=== PATIENT | female | born 1955 | race Hispanic/Latino ===

== ENCOUNTER 2019-05-09 13:15 | Emergency (ER) | payer MEDICARE ==
[2019-05-09] MEDS ORDERED: PROVENTIL IH ONE (13:42)
[2019-05-09] MEDS ORDERED: ATROVENT IH ONE (13:42)
[2019-05-09] MEDS ORDERED: SOLU-Medrol IV ONE (13:42)
[2019-05-09] MEDS ORDERED: MAGNESIUM SULFATE 2GM/50ML 2 GM/50 ML BAG IV ONE (13:42)
[2019-05-09] MEDS ORDERED: ZITHROMAX PO ONE (13:43)
[2019-05-09] MEDS ORDERED: TESSALON PERLES PO ONE (13:43)
[2019-05-09 14:09] LABS: Basophils # (Auto) 0.1 K/mm3 (0.0-0.1); Basophils % (Auto) 1.3 % (0.0-1.8); Eosinophils # (Auto) 0.1 K/mm3 (0.0-0.4); Eosinophils % (Auto) 1.4 % (0.0-4.3); Hematocrit 39.7 % (30.3-42.9); Hemoglobin 13.6 gm/dl (10.1-14.3); Lymphocytes % (Auto) 31.4 % (13.4-35.0); Mean Corpuscular HGB Conc 34 % (30-34); Mean Corpuscular Volume 94 fl (79-97); Monocytes # (Auto) 0.5 K/mm3 (0.0-0.8); Monocytes % (Auto) 8.5 % (0.0-7.3); Platelet Count 174 K/mm3 (140-440); Red Blood Count 4.22 M/mm3 (3.65-5.03); Red Cell Distribution Width 13.7 % (13.2-15.2)
[2019-05-09 14:29] LABS: BUN/Creatinine Ratio 53; Blood Urea Nitrogen 16 mg/dL (7-17); Calcium 9.1 mg/dL (8.4-10.2); Hemolysis Index 10
--- NOTE | 2019-05-09 14:47 | XRay Report ---
CHEST 2 VIEWS INDICATION / CLINICAL INFORMATION: wheeze, shortness of breath, cough, emphysema. COMPARISON: None available. FINDINGS: SUPPORT DEVICES: None. HEART / MEDIASTINUM: No significant abnormality. LUNGS / PLEURA: Hyperinflation with flattening of the diaphragm, increased AP dimension of the thorax , and increased rib spacing. Symmetrically increased lucency of the upper lung zones relative to the bases with sparse interstitial and vascular markings. No pneumothorax. ADDITIONAL FINDINGS: No significant additional findings. IMPRESSION: 1. Emphysematous changes. No acute abnormality. Signer Name: Eugenio Peng MD Signed: 05/09/2019 2:42 PM Workstation Name: [id number]
[2019-05-09] MEDS ORDERED: K-DUR PO ONE (14:54)
--- NOTE | 2019-05-09 14:59 | Emergency Department Report ---
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 Cough is productive of yellow-green sputum. No fever reported. Increased wheezing and shortness of breath reported. She ran out of her medications one week ago. Also has not had access to her when necessary oxygen 1 week because it is at a house she does not currently have access to. Patient does have an inhaler and access to a nebulizer machine. She denies fever, previous intubations, no calf tenderness, or leg edema. 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 She has gone to [place] in the past but does not consistently follow up. - Related Data Previous Rx's Medication Instructions Recorded Last Taken Type ALBUTEROL Inhaler (OR & NICU) 2 puff IH QID PRN #1 inhalation 05/09/19 Unknown Rx [ProAir HFA Inhaler] ALBUTEROL NEB's [Proventil 0.083% 2.5 mg IH TID PRN #1 box 05/09/19 Unknown Rx NEBS] Azithromycin [Zithromax Z-MICHELLE] 1 dose PO DAILY 5 Days tab 05/09/19 Unknown Rx Benzonatate [Tessalon Perles] 100 mg PO Q8HR PRN #30 capsule 05/09/19 Unknown Rx FLUoxetine [PROzac] 20 mg PO QDAY #30 capsule 05/09/19 Unknown Rx Mirtazapine [Remeron 30mg TAB] 30 mg PO QHS #30 tablet 05/09/19 Unknown Rx Nebulizer Accessories [Sootheneb 1 each MC PRN PRN #1 each 05/09/19 Unknown Rx [id number] Adult Mask] Nebulizer and Compressor 1 each MC PRN PRN #1 each 05/09/19 Unknown Rx [Sootheneb Compressor Nebulizer] Prednisone [predniSONE 10 mg 10 mg PO .TAPER #1 tab.ds.pk 05/09/19 Unknown Rx (6-Day Pack, 21 Tabs)] Tiotropium [place] [Spiriva] 2 puff IH DAILY #1 cap.w.dev 05/09/19 Unknown Rx buPROPion [Wellbutrin] 100 mg PO BID #60 tablet 05/09/19 Unknown Rx hydrOXYzine HCL [Atarax] 25 mg PO TID PRN #30 tablet 05/09/19 Unknown Rx Allergies Allergy/AdvReac Type Severity Reaction Status Date / Time Tetracyclines Allergy Unknown Verified 05/09/19 13:30 ED Review of Systems ROS: Stated complaint: SOB Other details as noted in HPI Comment: All other systems reviewed and negative ED Past Medical Hx - Past Medical History Previous Medical History?: Yes Hx Heart Attack/AMI: Yes Hx Arthritis: Yes (Lower Spine) Hx COPD: Yes (Emphsema) - Surgical History Past Surgical History?: No - Social History Smoking Status: Light Tobacco Smoker Substance Use Type: None - Medications Home Medications: Home Medications Medication Instructions Recorded Confirmed Last Taken Type ALBUTEROL Inhaler (OR & NICU) 2 puff IH QID PRN #1 inhalation 05/09/19 Unknown Rx [ProAir HFA Inhaler] ALBUTEROL NEB's [Proventil 0.083% 2.5 mg IH TID PRN #1 box 05/09/19 Unknown Rx NEBS] Azithromycin [Zithromax Z-MICHELLE] 1 dose PO DAILY 5 Days tab 05/09/19 Unknown Rx Benzonatate [Tessalon Perles] 100 mg PO Q8HR PRN #30 capsule 05/09/19 Unknown Rx FLUoxetine [PROzac] 20 mg PO QDAY #30 capsule 05/09/19 Unknown Rx Mirtazapine [Remeron 30mg TAB] 30 mg PO QHS #30 tablet 05/09/19 Unknown Rx Nebulizer Accessories [Sootheneb 1 each MC PRN PRN #1 each 05/09/19 Unknown Rx [id number] Adult Mask] Nebulizer and Compressor 1 each MC PRN PRN #1 each 05/09/19 Unknown Rx [Sootheneb Compressor Nebulizer] Prednisone [predniSONE 10 mg 10 mg PO .TAPER #1 tab.ds.pk 05/09/19 Unknown Rx (6-Day Pack, 21 Tabs)] Tiotropium [place] [Spiriva] 2 puff IH DAILY #1 cap.w.dev 05/09/19 Unknown Rx buPROPion [Wellbutrin] 100 mg PO BID #60 tablet 05/09/19 Unknown Rx hydrOXYzine HCL [Atarax] 25 mg PO TID PRN #30 tablet 05/09/19 Unknown Rx ED Physical Exam - General Limitations: No Limitations - Other Other exam information: General: No limitations, patient is alert in no acute distress Head exam: Atraumatic, normocephalic Eyes exam: Normal appearance, pupils equal reactive to light, extraocular movements intact ENT: Moist mucous membrane, normal oropharynx Neck exam: Normal inspection, full range of motion, no meningismus nontender Respiratory exam: Diminished breath sounds with mild intermittent wheezing. No tachypnea or accessory muscle use Cardiovascular: Normal rate and rhythm, normal heart sounds Abdomen: Soft, nondistended, and nontender, with normal bowel sounds, no rebound, or guarding Extremity: Full range of motion normal inspection no deformity, no calf tenderness or edema Back: Normal Inspection, full range of motion, no tenderness Neurologic: Alert, oriented x3, cranial nerves intact, no motor or sensory deficit Psychiatric: normal affect, normal mood Skin: Warm, dry, intact ED Course Vital Signs 05/09/19 05/09/19 05/09/19 13:17 13:33 13:44 Temperature 98.1 F Pulse Rate 80 Pulse Rate [ Bilateral] Respiratory 20 20 Rate Respiratory Rate [Bilateral ] Blood Pressure 90/53 Blood Pressure 90/53 111/57 [Left] O2 Sat by Pulse 94 Oximetry 05/09/19 14:30 Temperature Pulse Rate Pulse Rate [ 97 H Bilateral] Respiratory Rate Respiratory 24 Rate [Bilateral ] Blood Pressure Blood Pressure [Left] O2 Sat by Pulse Oximetry - Reevaluation(s) Reevaluation #1: 05/09/19 15:48 repeat bp is normal without any intervention. ED Medical Decision Making - Lab Data Result diagrams: 05/09/19 13:56 05/09/19 13:56 Lab Results 05/09/19 05/09/19 Range/Units 13:56 13:56 WBC 6.4 (4.5-11.0) K/mm3 RBC 4.22 (3.65-5.03) M/mm3 Hgb 13.6 (10.1-14.3) gm/dl Hct 39.7 (30.3-42.9) % MCV 94 (79-97) fl MCH 32 (28-32) pg MCHC 34 (30-34) % RDW 13.7 (13.2-15.2) % Plt Count 174 (140-440) K/mm3 Lymph % (Auto) 31.4 (13.4-35.0) % [place] % (Auto) 8.5 H (0.0-7.3) % Eos % (Auto) 1.4 (0.0-4.3) % Baso % (Auto) 1.3 (0.0-1.8) % Lymph # 2.0 (1.2-5.4) K/mm3 [place] # 0.5 (0.0-0.8) K/mm3 Eos # 0.1 (0.0-0.4) K/mm3 Baso # 0.1 (0.0-0.1) K/mm3 Seg Neutrophils % 57.4 (40.0-70.0) % Seg Neutrophils # 3.7 (1.8-7.7) K/mm3 Sodium 143 (137-145) mmol/L Potassium 3.2 L (3.6-5.0) mmol/L Chloride 102.6 (98-107) mmol/L Carbon Dioxide 27 (22-30) mmol/L Anion Gap 17 mmol/L BUN 16 (7-17) mg/dL Creatinine 0.3 L (0.7-1.2) mg/dL Estimated GFR > 60 ml/min BUN/Creatinine Ratio 53 % Glucose 117 H (65-100) mg/dL Calcium 9.1 (8.4-10.2) mg/dL - Radiology Data Radiology results: report reviewed CHEST 2 VIEWS INDICATION / CLINICAL INFORMATION: wheeze, shortness of breath, cough, emphysema. COMPARISON: None available. FINDINGS: SUPPORT DEVICES: None. HEART / MEDIASTINUM: No significant abnormality. LUNGS / PLEURA: Hyperinflation with flattening of the diaphragm, increased AP dimension of the thorax, and increased rib spacing. Symmetrically increased lucency of the upper lung zones relative to the bases with sparse interstitial and vascular markings. No pneumothorax. ADDITIONAL FINDINGS: No significant additional findings. IMPRESSION: 1. Emphysematous changes. No acute abnormality. - Medical Decision Making + copd with acute exacerbation no acute findings on cxr or labs plan to d/c with meds tx with nebs, steroids, mag, azithromycin, tessalon perles and potassium in ed - Differential Diagnosis copd, bronchitis, pneumonia, emphysema Critical Care Time: No Critical care attestation.: If time is entered above; I have spent that time in minutes in the direct care of this critically ill patient, excluding procedure time. ED Disposition Clinical Impression: Emphysema with both acute and chronic bronchitis, Medication refill Disposition: TO HOME OR SELFCARE Is pt being admited?: No Does the pt Need Aspirin: No Condition: Stable Instructions: Acute Bronchitis (ED), Emphysema (ED) Additional Instructions: Take the medication as prescribed. Follow up with your doctor or the clinic/doctor provided. Return if symptoms worsen as indicated by your discharge instructions Prescriptions: hydrOXYzine HCL [Atarax] 25 mg PO TID PRN #30 tablet PRN Reason: Anxiety Prednisone [predniSONE 10 mg (6-Day Pack, 21 Tabs)] 10 mg PO .TAPER #1 tab.ds.pk ALBUTEROL Inhaler (OR & NICU) [ProAir HFA Inhaler] 2 puff IH QID PRN #1 inhalation PRN Reason: Shortness Of Breath ALBUTEROL NEB's [Proventil 0.083% NEBS] 2.5 mg IH TID PRN #1 box PRN Reason: Wheezing FLUoxetine [PROzac] 20 mg PO QDAY #30 capsule Mirtazapine [Remeron 30mg TAB] 30 mg PO QHS #30 tablet Nebulizer and Compressor [Sootheneb Compressor Nebulizer] 1 each MC PRN PRN #1 each PRN Reason: Wheezing Nebulizer Accessories [Sootheneb [id number] Adult Mask] 1 each MC PRN PRN #1 each PRN Reason: Wheezing Tiotropium [place] [Spiriva] 2 puff IH DAILY #1 cap.w.dev Benzonatate [Tessalon Perles] 100 mg PO Q8HR PRN #30 capsule PRN Reason: Cough buPROPion [Wellbutrin] 100 mg PO BID #60 tablet Azithromycin [Zithromax Z-MICHELLE] 1 dose PO DAILY 5 Days tab Referrals: [facility] [Provider Group] - 3-5 Days (Primary care clinic) RADHA GUADALUPE MD [Staff Physician] - 3-5 Days (Spreader) DONALD SOGN DO [Staff Physician] - 3-5 Days (Primary care doctor) Time of Disposition: 16:06
[2019-05-09 17:13] VITALS: BP 103/52
== END 2019-05-09 17:17 | disposition home or self-care (01) ==
LOC: ED 13:15
DX: J43.9 Emphysema, unspecified (principal); J20.9 Acute bronchitis, unspecified; J42 Unspecified chronic bronchitis; I25.2 Old myocardial infarction; M19.90 Unspecified osteoarthritis, unspecified site; F17.200 Nicotine dependence, unspecified, uncomplicated; Z76.0 Encounter for issue of repeat prescription; Z79.899 Other long term (current) drug therapy; Z88.1 Allergy status to other antibiotic agents
CPT/HCPCS: 36415; 71046; 80048; 85025; 94640; 96365; 96375; 99284; J2930; J3475; 94644